=== PATIENT | female | born 2000 | race African-American/Black ===

== ENCOUNTER 2024-10-04 08:14 | Emergency (ER) | payer MEDICAID ==
[~2024-10-04] VITALS: Ht 152.4 cm; Wt 56.6 kg
[2024-10-04 08:16] VITALS: O2SAT 100
[2024-10-04 08:17] VITALS: BP 110/66; PULSE 74; RESP 16; TEMP 36.8; O2SAT 98
[2024-10-04] MEDS ORDERED: AMOX1TAB16 MT (08:25)
== END 2024-10-04 08:34 | disposition home or self-care (01) ==
LOC: ER 08:14
DX: S09.93XA Unspecified injury of face, initial encounter (principal); Z79.899 Other long term (current) drug therapy; W01.0XXA Fall on same level from slipping, tripping and stumbling without subsequent striking against object, initial encounter; Y93.89 Activity, other specified; Y92.89 Other specified places as the place of occurrence of the external cause; Y99.8 Other external cause status
CPT/HCPCS: 99283